=== PATIENT | female | born 1945 | race Caucasian/White ===

== ENCOUNTER → 2018-01-27 15:36 | Outpatient (CLI) | payer OTHER, SELFPAY ==
--- NOTE | 2018-01-27 | DI.RAD.S_ITS ---
PROCEDURE: XR CHEST 2V INDICATIONS: ACUTE UPPER RESPITORY INFECTION TECHNIQUE: 2 views of the chest were acquired. COMPARISON: [facility], CR, XR CHEST 2VW, 06/24/2016, 13:30. [facility], CR, CHEST 1 VIEW, 11/19/2009, 22:13. FINDINGS: Surgical changes and devices: None. Lungs and pleura: No pleural effusions or pneumothorax. Lungs are clear. Mediastinum: Mediastinal contours are normal. Heart size is normal. Bones and chest wall: No suspicious bony abnormalities. Soft tissues appear unremarkable. IMPRESSION: No acute cardiopulmonary disease. Dictated by: Zuhair CHAMORRO Interpreted: Carlos Hirsch MD on 01/27/2018 at 16:03 Approved by: Carlos Hirsch M.D. on 01/28/2018 at 10:43
== END ==
PROVIDERS: Visit Provider Physician Assistant
DX: J06.9 Acute upper respiratory infection, unspecified (principal)
CPT/HCPCS: 71046

== ENCOUNTER → 2018-04-14 13:32 | Outpatient (CLI) | payer OTHER, SELFPAY ==
--- NOTE | 2018-04-14 | DI.RAD.S_ITS ---
PROCEDURE: FL UPPER GI SERIES INDICATIONS: GERD COMPARISON: None. 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 No suspicious abdominal calcifications. Visualized solid organ contours appear normal. Bony structures appear unremarkable. Please fix exam type. Esophagus: Esophageal mucosa is normal on air-contrast views. On single-contrast views, there is normal esophageal peristalsis. No strictures, extrinsic mass effects, or diverticula. There is a small hiatal hernia seen. There is a mild amount of gastroesophageal reflux. There is normal transit of a calibrated barium tablet through the esophagus. Stomach: The stomach is normally distensible, with normal rugal fold thickness. No mucosal masses or ulcers. Pylorus and duodenal bulb appear normal in morphology. Duodenal folds are normal in thickness as well. IMPRESSION: Small hiatal hernia, with a mild amount of associated gastroesophageal reflux. Dictated by: Rio Mckay M.D. on 04/14/2018 at 14:33 Approved by: Rio Mckay M.D. on 04/14/2018 at 14:34
== END ==
PROVIDERS: PCP Physician Assistant; Visit Provider Physician Assistant
DX: K21.9 Gastro-esophageal reflux disease without esophagitis (principal); K44.9 Diaphragmatic hernia without obstruction or gangrene
CPT/HCPCS: 74240

== ENCOUNTER 2018-04-21 08:28 | Day surgery (SDC) | payer OTHER, SELFPAY ==
[2018-04-21] VITALS (7 sets, daily range): BP systolic 100–119; BP diastolic 56–70; PULSE 63–74; RESP 8–20; TEMP 36.4–36.6; O2SAT 92–96; BMI 27.4
--- NOTE | 2018-04-21 10:23 | PM.HP.1 ---
History of Present Illness Date Patient Seen: 04/21/18 Time Patient Seen: 10:23 Chief complaint: [id number] Narrative: Very pleasant and generally very healthy 73-year-old lady here for screening colonoscopy. She denies any problems or symptoms related to the function of her GI tract. She reports her last colonoscopy was approximately 14 years ago and was normal. Patient History Medical History Appendicitis with perforation (Acute) Family & Social History Family History: Reviewed 04/21/18 by Ambar Lopez MD Social History: household members spouse Tobacco & Substance use: Smoking Status Never smoker alcohol intake never Meds Home Medications Medication Instructions Recorded Confirmed Type fluoxetine 20 mg capsule 20 mg PO DAILY 01/12/18 04/21/18 History pantoprazole 40 mg tablet,delayed 40 mg PO .COMPLEX 01/12/18 04/21/18 History release Allergies Allergy/AdvReac Type Severity Reaction Status Date / Time latex Allergy Severe swelling Verified 04/21/18 08:47 at site erythromycin base Allergy Mild Nausea Verified 04/21/18 08:47 Sulfa (Sulfonamide Allergy Mild Nausea Verified 04/21/18 08:58 Antibiotics) Review of Systems Review of Systems All systems reviewed & are unremarkable except as noted in HPI and below Exam Vital Signs (past 8 hours): - 04/21/18 08:48 Temperature 97.6 F Pulse Rate 69 Respiratory Rate 15 Blood Pressure 119/70 Pulse Oximetry 96 Oxygen Delivery Method Room Air Narrative Exam Narrative: Pleasant well-nourished well-developed lady in no distress HEENT: Normocephalic and atraumatic, pupils equal round reactive to light accommodation with anicteric sclera Lungs: Clear to auscultation bilaterally Heart: Regular rate rhythm Abdomen: Soft, nontender, active bowel sounds Extremities: Warm well perfused Assessment & Plan Plan: Assessment/Plan Narrative: Pleasant a remarkably healthy 73-year-old lady here for screening colonoscopy. We discussed the risks and benefits of procedure and she expressed a desire to complete it today
[2018-04-21] MEDS: SODIUM CHLORIDE 0.9% 1,000 ML 200 ML IV (10:43)
[2018-04-21] MEDS: fentaNYL 250 MCG/5 ML INJ IV (10:44)
[2018-04-21] MEDS: MIDAZOLAM 5 MG/5 ML VIAL 6 MG IV (10:45)
--- NOTE | 2018-04-21 10:50 | PM.OP.1 ---
Operative Date/Time/Diagnoses Date of procedure: 04/21/18 Time of procedure: 10:50 Pre-op diagnosis: Screening Post-op diagnosis: same Procedure & Clinicians Procedure: Colonoscopy to the cecum Same procedure as scheduled: Yes Indications: Last colonoscopy 14 years ago Surgeon: Ambar Lopez Anesthesia Type: Sedation (Versed 6 mg; fentanyl 200 mcg) Operative Notes Findings: 1. Excellent prep 2. No polyps or mass lesions 3. No AV malformations 4. Mild diverticulosis limited to the sigmoid region 5. Grade 1 internal hemorrhoids 6. Essentially normal colonoscopy for age Procedure in detail: After obtaining informed consent, the patient was brought to the GI suite and placed in the left lateral decubitus position on the examination table. After placement of appropriate monitors, the patient was given incremental doses of Versed and Fentanyl until an appropriate level of sedation was achieved. A time out was held per SCOAP protocol. A digital rectal examination was performed and did not reveal any masses or obstructing lesions. The colonoscope was gently passed into the patient's anus and the entire colon navigated to the level of the cecum with minimal difficulty. Once in the cecum, the scope was withdrawn being sure to go before and beyond all mucosal folds and prominences and get an excellent examination. The findings are noted above. At the level of the rectal vault, the scope was retroflexed and the internal anal canal was examined. The scope was straightened and air aspirated from the colon. The instrument was removed from the patient's body and the procedure was concluded. The patient was allowed to awaken from sedation without difficulty and taken to the post-anesthesia care unit in good condition. Total sedation time 22 min Total withdrawal time 9 min Complications: none Condition: stable Disposition: PACU Plan for aftercare: 1. Discharge to home 2. I do not recommend additional screening colonoscopies
== END 2018-04-21 11:46 | disposition home or self-care (01) ==
PROVIDERS: PCP Physician Assistant; Visit Provider Surgery
PROC: 0DJD8ZZ Inspection of Lower Intestinal Tract, Via Natural or Artificial Opening Endoscopic (ICD-10-PCS; CPT 45378; principal; 2018-04-21 09:45)
DX: Z12.11 Encounter for screening for malignant neoplasm of colon (principal); K57.30 Diverticulosis of large intestine without perforation or abscess without bleeding; K64.0 First degree hemorrhoids
CPT/HCPCS: G0121; 99152; J2250; J3010

== ENCOUNTER → 2019-09-06 15:57 | Outpatient (CLI) | payer MEDICARE, SELFPAY ==
--- NOTE | 2019-09-06 | DI.MG.S_ITS ---
BILATERAL DIGITAL SCREENING MAMMOGRAM 3D/2D WITH CAD: 09/06/2019 CLINICAL: Routine screening. Family history of breast cancer. Comparison is made to exams dated: 08/23/2017 mammogram, 08/20/2015 mammogram, and 02/15/2013 mammogram - [facility]. The tissue of both breasts is heterogeneously dense. This may lower the sensitivity of mammography. Current study was also evaluated with a Computer Aided Detection (CAD) system. No significant masses, calcifications, or other findings are seen in either breast. There has been no significant interval change. IMPRESSION: NEGATIVE There is no mammographic evidence of malignancy. A 1 year screening mammogram is recommended. This exam was interpreted at Station ID: [id number]. NOTE: For mammograms, a report in lay terms will be sent to the patient. Approximately 15% of breast malignancies will not be visualized mammographically. In the management of a palpable breast mass, a negative mammogram must not discourage biopsy of a clinically suspicious lesion. Electronically Signed By: Jessenia vazquez/aarti:09/06/2019 16:57:28 letter sent: Normal Exam ACR BI-RADS Category 1: Negative 3341F
== END ==
PROVIDERS: PCP Physician Assistant; Referring Provider Internal Medicine; Visit Provider Internal Medicine
DX: Z12.31 Encounter for screening mammogram for malignant neoplasm of breast (principal); Z80.3 Family history of malignant neoplasm of breast
CPT/HCPCS: 77063; 77067

== ENCOUNTER → 2020-11-13 13:59 | Outpatient (CLI) | payer MEDICARE, SELFPAY ==
--- NOTE | 2020-11-13 14:04 | DI.RAD.S_ITS ---
PROCEDURE: XR CERVICAL SPINE 2V OR 3V INDICATIONS: NECK PAIN TECHNIQUE: 3 view(s) of the cervical spine were acquired. COMPARISON: None. FINDINGS: Bones: Vertebral body height, bone mineralization and craniovertebral relationships are normal. There is 3 mm anterior subluxation of C4 over C5. Degenerative disc space narrowing and anterior osteophytes noted at C5-6 and C6-7 with hypertrophic facet joints present throughout the exam. Soft tissues: No prevertebral soft tissue swelling. IMPRESSION: Multilevel degenerative disc disease and arthropathy Degenerative grade 1 anterior spondylolisthesis at C4-5 Dictated by: Jett Van M.D. on 11/13/2020 at 15:15 Approved by: Jett Van M.D. on 11/13/2020 at 15:18
--- NOTE | 2020-11-13 14:04 | DI.RAD.S_ITS ---
PROCEDURE: XR LUMBAR SPINE 2-3V INDICATIONS: BACK PAIN TECHNIQUE: 3 views of the lumbar spine were acquired. COMPARISON: [facility], , L-SPINE 2-3 VIEWS, 03/07/2009, 15:34. FINDINGS: Bones: Or vertebral body height and bone mineralization is maintained. There is severe disc space narrowing and 3 mm retrolisthesis noted at L2-3, new from the prior exam. Mild convex left thoracolumbar scoliosis. Stable distaste narrowing and degenerative facet joints noted L5-S1 Soft tissues: Overlying bowel gas pattern is normal. No suspicious soft tissue calcifications. IMPRESSION: 1. Degenerative disc disease and facet arthropathy resulting in retrolisthesis at L2-3, new from the prior exam 03/07/2009 Dictated by: Jett Van M.D. on 11/13/2020 at 15:18 Approved by: Jett Van M.D. on 11/13/2020 at 16:05
--- NOTE | 2020-11-13 14:04 | DI.RAD.S_ITS ---
PROCEDURE: XR THORACIC SPINE 3V INDICATIONS: BACK PAIN TECHNIQUE: With 2 views of the thoracic spine were acquired. COMPARISON: [facility], , XR CHEST 2V, 01/27/2018, 15:42. FINDINGS: Bones: No fractures or dislocations. No suspicious bony lesions. 12 pairs of ribs are noted, and appear intact where visualized. Convex right thoracic scoliosis noted. Minimal disc space narrowing and anterior osteophytes noted in the mid thoracic spine. Soft tissues: Surgical clips noted in the right upper quadrant. IMPRESSION: Mild multilevel degenerative disc disease in the midthoracic spine without fracture or malalignment. Dictated by: Jett Van M.D. on 11/13/2020 at 16:05 Approved by: Jett Van M.D. on 11/13/2020 at 16:07
== END ==
PROVIDERS: PCP Student in an Organized Health Care Education/Training Program; Referring Provider Student in an Organized Health Care Education/Training Program; Visit Provider Student in an Organized Health Care Education/Training Program
DX: M54.9 Dorsalgia, unspecified (principal); M47.812 Spondylosis without myelopathy or radiculopathy, cervical region; M50.321 Other cervical disc degeneration at C4-C5 level; M43.12 Spondylolisthesis, cervical region; M51.36 Other intervertebral disc degeneration, lumbar region; M43.16 Spondylolisthesis, lumbar region; M47.816 Spondylosis without myelopathy or radiculopathy, lumbar region; M51.34 Other intervertebral disc degeneration, thoracic region; N18.30 Chronic kidney disease, stage 3 unspecified; Z78.0 Asymptomatic menopausal state; Z82.62 Family history of osteoporosis
CPT/HCPCS: 72040; 72072; 72100; 77080

== ENCOUNTER → 2021-09-10 14:59 | Outpatient (CLI) | payer OTHER, SELFPAY ==
--- NOTE | 2021-09-10 | DI.MG.S_ITS ---
BILATERAL DIGITAL SCREENING MAMMOGRAM 3D/2D WITH CAD: 09/10/2021 CLINICAL: Routine screening. Family history of breast cancer. Comparison is made to exams dated: 09/06/2019 mammogram, 08/23/2017 mammogram, and 08/20/2015 mammogram - [facility]. The tissue of both breasts is heterogeneously dense. This may lower the sensitivity of mammography. Current study was also evaluated with a Computer Aided Detection (CAD) system. No significant masses, calcifications, or other findings are seen in either breast. There has been no significant interval change. IMPRESSION: NEGATIVE There is no mammographic evidence of malignancy. A 1 year screening mammogram is recommended. This exam was interpreted at Station ID: [id number]. NOTE: For mammograms, a report in lay terms will be sent to the patient. Approximately 15% of breast malignancies will not be visualized mammographically. In the management of a palpable breast mass, a negative mammogram must not discourage biopsy of a clinically suspicious lesion. Electronically Signed By: Juan Garrido M.D., jr/aarti:09/11/2021 09:18:27 letter sent: Normal Exam ACR BI-RADS Category 1: Negative 3341F
== END ==
PROVIDERS: PCP Internal Medicine; Referring Provider Internal Medicine; Visit Provider Internal Medicine
DX: Z12.31 Encounter for screening mammogram for malignant neoplasm of breast (principal); Z80.3 Family history of malignant neoplasm of breast
CPT/HCPCS: 77063; 77067

== ENCOUNTER → 2023-01-21 15:23 | Outpatient (CLI) | payer OTHER, SELFPAY ==
--- NOTE | 2023-01-21 15:25 | DI.US.S_ITS ---
PROCEDURE: US ABDOMEN LIMITED INDICATIONS: LUMP RIGHT POSTERIOR THORAX TECHNIQUE: Real-time focused scanning was performed of the abdomen, with image documentation. COMPARISON: None. FINDINGS: Palpable lump, right posterior thorax, was interrogated with a high megahertz linear transducer. This corresponded to a homogeneous hyperechoic well-defined lesion measuring 3.4 x 2.0 x 0.9 cm, without vascularity. It may potentially represent lipoma. 2 other incidental similar lesions were identified, including a lesion lateral to the palpable nodule, measuring 2.4 x 1.2 x 0.6 cm, and a more medial inferior lesion measuring 1.9 x 0.9 x 0.7 cm. These all may potentially represent lipomata. IMPRESSION: Palpable lump may potentially represent a lipoma. 2 other potential lipomas are identified in relative close proximity. Dictated by: Vikas Carter M.D. on 01/21/2023 at 17:22 Approved by: Vikas Carter M.D. on 01/21/2023 at 17:24
== END ==
PROVIDERS: PCP Registered Nurse; Referring Provider Registered Nurse; Visit Provider Registered Nurse
DX: D49.2 Neoplasm of unspecified behavior of bone, soft tissue, and skin (principal)
CPT/HCPCS: 76705

== ENCOUNTER 2023-03-23 06:37 | Day surgery (SDC) | payer OTHER, SELFPAY ==
[2023-03-09 08:02] VITALS: BMI 30.2
--- NOTE | 2023-03-23 | PATH_ITS ---
[facility] Accession Number: [id number] No. of containers..01 Tissue . 01 Material submitted: . back - RIGHT LOWER BACK . 01 Diagnosis: Right Lower Back, Excision: Mature fibroadipose tissue, consistent with lipoma. MRV 03/31/2023 1225 Local . 01 Electronically signed: . Michael Hair MD, Dermatopathologist NPI- [id number] . 01 Gross description: . RIGHT LOWER BACK: Received in formalin is 1 fragment of lazo soft tissue measuring 5.5 x 3.0 x 1.7 cm. Tissue is inked. Specimen is sectioned and submitted in data entry representative sections in 2 cassettes. /LÁZARO 03/25/2023 0052 Local . 01 Pathologist provided ICD-10: D17.9 . 01 CPT . 821341 Specimen Comment: A courtesy copy of this report has been sent to [phone] Performed at: 01 [facility] [address] [place] [address], [place], [place] [id number] MD Alejandro Kothari MD Phone: [phone]
[2023-03-23] MEDS: LACTATED RINGERS 1,000 ML 100 ML IV (07:22)
[2023-03-23 07:31] VITALS: BP 134/69; PULSE 63; RESP 16; TEMP 36.2; O2SAT 97
[2023-03-23 07:45] VITALS: BMI 30.2
--- NOTE | 2023-03-23 07:51 | PM.PREOP ---
Pre-operative Note COVID-19 COVID-19 status: Not tested Interval Note History & Physical reviewed/Exam performed by Physician: Yes Changes to H&P: No ASA Class (for procedural sedation): II
--- NOTE | 2023-03-23 08:09 | SUR.OPER ---
Lateral OR TABLE, head on pillow, gel axillary roll in place, bottom leg bent with gel pad under knee to foot, upper leg straight and supported with pillows. CLOTH TAPE USED TO SECURE BODY AND LEGS TO TABLE. TOWELS USED BETWEEN TAPE AND SKIN. Upper arm supported by pillows and secured over bottom arm to padded arm board WITH CLOTH TAPE. Safety belt at hip, tape over blanket lower legs.
[2023-03-23] MEDS: BUPIVACAINE 0.5% (PF) 30 ML, EPINEPHrine 0.15 MG INJ (08:12)
--- NOTE | 2023-03-23 08:35 | P.OP_ITS ---
Operative Date/Time/Diagnoses Date of procedure: 03/23/23 Time of procedure: 08:36 Pre-op diagnosis: Right lumbar tissue mass Post-op diagnosis: same Procedure & Clinicians Procedure: Excisional biopsy of right lumbar soft tissue mass Same procedure as scheduled: Yes Surgeon: Ha Phelan Traffic Agent: Rafy Johnson Anesthesia Type: General Operative Notes Procedure in detail: The patient was brought to the operating room and monitored anesthesia was induced. Patient was then positioned in the left lateral decubitus position with right side up. She was secured and pressure points were padded. The right lumbar area was prepped and draped in the usual fashion and a time-out was performed. A 7 cm incision was created over the palpable mass right lumbar area and dissection was carried down to the mass which appeared to be a ill-defined lipoma measuring roughly 4 cm x 3 cm x 3 cm. The mass extended to the muscle fascia. Some additional local was injected into the muscle fascia. A small defect was created in the muscle fascia which was repaired with 3 interrupted 3- 0 Vicryl sutures. We then irrigated the wound with saline. We then closed the wound in layers using multiple interrupted 3-0 Vicryl dermal sutures followed by a running 4-0 Monocryl subcuticular stitch. Steri-Strips and gauze were applied over the incision. EBL: 10 mL Specimen: Right lumbar lipoma Post-operative Condition: stable Disposition: PACU
[2023-03-23 08:37] VITALS: BP 117/42; PULSE 80; RESP 14; TEMP 36.2; O2SAT 96
[2023-03-23 08:41] VITALS: BP 111/42; PULSE 69; RESP 12; O2SAT 96
[2023-03-23 08:47] VITALS: BP 116/59; PULSE 69; RESP 14; TEMP 36.2; O2SAT 96
[2023-03-23 08:51] VITALS: BP 115/51; PULSE 65; RESP 14; O2SAT 98
[2023-03-23 09:03] VITALS: BP 119/53; PULSE 58; RESP 16; TEMP 36.2; O2SAT 98
== END 2023-03-23 09:21 | disposition home or self-care (01) ==
PROVIDERS: PCP Registered Nurse; Referring Provider Surgery; Visit Provider Surgery
PROC: (CPT 21933; principal; 2023-03-23 07:45)
DX: R22.2 Localized swelling, mass and lump, trunk (principal); D17.1 Benign lipomatous neoplasm of skin and subcutaneous tissue of trunk
CPT/HCPCS: 21933; J0171; J2405; J2704; J3010

== ENCOUNTER → 2023-05-19 12:55 | Outpatient (CLI) | payer OTHER, SELFPAY ==
--- NOTE | 2023-05-19 | DI.RAD.S_ITS ---
PROCEDURE: XR JOINT SURVEY INDICATIONS: ARTHRITIS SCREENING TECHNIQUE: 1 view(s) of the bilateral hands acquired. COMPARISON: None. FINDINGS: Bones: No fractures or dislocations. Mild osteoarthritic changes are noted throughout bilateral hand and wrist joints more notably involving 1st CMC joints, and interphalangeal joints. There is mild bilateral juxta-articular osteopenia. Radiolucency involving radial aspect of left 3rd proximal and middle phalangeal heads are seen. Similar radiolucency is also noted in radial aspect of right 3rd proximal phalangeal head. No suspicious bony lesions. Soft tissues: No suspicious soft tissue calcifications. 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 Subtle radiolucencies involving bilateral 3rd proximal phalangeal heads and left 3rd middle phalangeal head concerning for subtle erosion secondary to inflammatory arthropathy suggest clinical correlation. Dictated by: Jono Mclain M.D. on 05/20/2023 at 11:48 Approved by: Jono Mclain M.D. on 05/20/2023 at 11:50
== END ==
PROVIDERS: PCP Registered Nurse; Referring Provider Registered Nurse; Visit Provider Registered Nurse
DX: M25.531 Pain in right wrist (principal); R20.2 Paresthesia of skin
CPT/HCPCS: 77077

== ENCOUNTER → 2023-12-31 12:41 | Outpatient (CLI) | payer OTHER, SELFPAY ==
--- NOTE | 2023-12-31 12:42 | DI.MG.S_ITS ---
BILATERAL DIGITAL SCREENING MAMMOGRAM 3D/2D WITH CAD: 12/31/2023 CLINICAL: Routine screening. Family history of breast cancer. Comparison is made to exams dated: 09/10/2021 mammogram, 09/06/2019 mammogram, and 08/23/2017 mammogram - [facility]. Both breasts are heterogeneously dense, which may obscure small masses (category c / 51-75% glandular tissue). Current study was also evaluated with a Computer Aided Detection (CAD) system. There is a focal asymmetry in the left breast at lower outer quadrant at middle depth. No other significant masses, calcifications, or other findings are seen in either breast. IMPRESSION: INCOMPLETE: NEEDS ADDITIONAL IMAGING EVALUATION The focal asymmetry in the left breast is indeterminate. A diagnostic mammogram and ultrasound is recommended. Based on the Tyrer Cuzick model (a risk assessment model) the patient's lifetime risk is 3.4% and her 10 year risk is 0.0%. According to the ACR, ACS, and NCCN guidelines, an annual breast MRI exam along with mammogram is recommended if the patient's lifetime risk is 20% or greater. This exam was interpreted at Station ID: [id number]. NOTE: For mammograms, a report in lay terms will be sent to the patient. Approximately 15% of breast malignancies will not be visualized mammographically. In the management of a palpable breast mass, a negative mammogram must not discourage biopsy of a clinically suspicious lesion. Electronically Signed By: Lizzy Ngo M.D., Ph.D. eb/:12/31/2023 14:07:16 letter sent: Additional Imaging Needed ACR BI-RADS Category 0: Incomplete 3340F
== END ==
LOC: MAMMO 12:42
PROVIDERS: PCP Registered Nurse; Referring Provider Registered Nurse; Visit Provider Registered Nurse
DX: Z12.31 Encounter for screening mammogram for malignant neoplasm of breast (principal); Z80.3 Family history of malignant neoplasm of breast; R92.333 Mammographic heterogeneous density, bilateral breasts
CPT/HCPCS: 77063; 77067

== ENCOUNTER → 2024-03-08 11:43 | Outpatient (CLI) | payer OTHER, SELFPAY ==
--- NOTE | 2024-03-08 11:44 | DI.MG.S_ITS ---
UNILATERAL LEFT DIGITAL DIAGNOSTIC MAMMOGRAM 3D/2D WITH ADDITIONAL VIEWS: 03/08/2024 CLINICAL: Additional evaluation requested from prior study. Comparison is made to exams dated: 12/31/2023 mammogram, 09/10/2021 mammogram, and 09/06/2019 mammogram - [facility]. The left breast is heterogeneously dense, which may obscure small masses (category c / 51-75% glandular tissue). The 6 mm oval, bilobed, low density asymmetry with a circumscribed margin in the left breast central to the nipple posterior depth is seen in additional views. No other significant masses or calcifications are seen in the breast. IMPRESSION: INCOMPLETE: NEEDS ADDITIONAL IMAGING EVALUATION The 6 mm asymmetry in the left breast most likely is a cyst, clustered cysts, or a lymph node but remains indeterminate. Ultrasound is recommended for full evaluation of this area. This was performed immediately following this exam. Based on the Tyrer Cuzick model (a risk assessment model) the patient's lifetime risk is 3.4% and her 10 year risk is 0.0%. According to the ACR, ACS, and NCCN guidelines, an annual breast MRI exam along with mammogram is recommended if the patient's lifetime risk is 20% or greater. This exam was interpreted at Station ID: [id number]. NOTE: For mammograms, a report in lay terms will be sent to the patient. Approximately 15% of breast malignancies will not be visualized mammographically. In the management of a palpable breast mass, a negative mammogram must not discourage biopsy of a clinically suspicious lesion. Electronically Signed By: Morelia underwood/:03/08/2024 14:48:21 ACR BI-RADS Category 0: Incomplete 3340F
--- NOTE | 2024-03-08 11:45 | DI.US.S_ITS ---
LIMITED ULTRASOUND OF LEFT BREAST: 03/08/2024 CLINICAL: Follow up from addtional views. Comparison is made to exams dated: 03/08/2024 mammogram, 12/31/2023 mammogram, 09/10/2021 mammogram, 09/06/2019 mammogram, and 08/23/2017 mammogram - [facility]. Color flow and real-time ultrasound of the left breast 6 o'clock region were performed. There is a 0.4 cm x 0.8 cm x 0.3 cm bilobed, oval cyst in the left breast at 6 o'clock middle depth 3 cm from the nipple. This oval cyst is hypoechoic with posterior acoustic enhancement. There are related echgenic foci, possibly microcalcifications. This correlates with mammography findings. Color flow imaging demonstrates that there is no vascularity present. IMPRESSION: PROBABLY BENIGN The 0.8 cm cyst in the left breast probably corresponds to the mammogram finding, most likely is a complicated cyst and is probably benign. A follow-up left mammogram and an ultrasound in 6 months is recommended to demonstrate stability. Findings and recommendations were conveyed to the patient at time of exam. This exam was interpreted at Station ID: [id number]. Electronically Signed By: Morelia underwood/:03/08/2024 14:55:00 letter sent: Followup Recommended Ultrasound BI-RADS: 3 Probably benign
== END ==
LOC: MAMMO 11:44
PROVIDERS: PCP Registered Nurse; Referring Provider Registered Nurse; Visit Provider Registered Nurse
DX: R92.8 Other abnormal and inconclusive findings on diagnostic imaging of breast (principal); N60.02 Solitary cyst of left breast; N64.89 Other specified disorders of breast; R92.332 Mammographic heterogeneous density, left breast
CPT/HCPCS: 76642; 77065; G0279

== ENCOUNTER → 2024-08-01 12:27 | Outpatient (ROUT) | payer OTHER, SELFPAY ==
[2024-08-01 12:49] LABS: Alanine Aminotransferase 23 IU/L (<35); Albumin Globulin Ratio 1.5 (1.0-2.8); Alkaline Phosphatase 75 U/L (38-126); BUN Creatinine Ratio 22.9 (6-22); Bilirubin Total 1.8 mg/dL (0.2-1.3); Blood Urea Nitrogen 24 mg/dL (7-17); Calcium 9.5 mg/dL (8.4-10.2); Carbon Dioxide 25 mmol/L (22-32); Chloride 104 mmol/L (98-107); Estimated Glomerular Filt Rate 54 mL/min (>60); Globulin 2.7 g/dL (1.7-4.1); Glucose 91 mg/dL (80-110); Sodium 137 mmol/L (137-145); Total Protein 6.7 g/dL (6.3-8.2)
[2024-08-01 12:52] LABS: HEMOLYSIS 56 (0-50); Potassium 3.9 mmol/L (3.4-5.1)
[2024-08-01 12:54] LABS: Aspartate Aminotransferase 39 IU/L (14-36)
== END ==
PROVIDERS: PCP Registered Nurse; Visit Provider Registered Nurse
DX: R10.32 Left lower quadrant pain (principal)
CPT/HCPCS: 80053

== ENCOUNTER → 2024-08-02 11:48 | Outpatient (CLI) | payer OTHER, SELFPAY ==
--- NOTE | 2024-08-02 11:50 | DI.CT.S_ITS ---
PROCEDURE: CT ABDOMEN PELVIS W CON INDICATIONS: LLQ ABD PAIN TECHNIQUE: After the administration of intravenous contrast, axial sections acquired from the lung bases to the pubic symphysis. Coronal and sagittal reformats were performed. For radiation dose reduction, the following was used: automated exposure control, adjustment of mA and/or kV according to patient size. COMPARISON: None. FINDINGS: Image quality: Diagnostic. Lower Chest: No significant findings. ABDOMEN: Liver: No solid mass. Several small cysts. Gallbladder: Absent. Biliary ducts: No biliary dilation. Pancreas: No ductal dilation. Spleen: Size is within normal limits. Benign cysts. Adrenal Glands: No adrenal nodules. Kidneys and Ureters: No hydronephrosis. No solid mass. No complex renal cystic lesion which requires follow up. Stomach and Bowel: Mild diverticulitis at the splenic flexure, (3/51). No free air seen. No abscess. The appendix is absent. No small bowel obstruction. Stomach is within normal limits. Peritoneum: No abnormal intraperitoneal fluid. No free air. Ventral Wall: No significant ventral hernia. Abdominal Nodes: No retroperitoneal or mesenteric adenopathy by size criteria. Vessels: Aorta and inferior vena cava are normal in size. PELVIS: Pelvic Organs: Uterus is absent. No free fluid. Bladder: No bladder wall thickening, accounting for underdistention. Pelvic Nodes: No enlarged lymph nodes. Miscellaneous: No inguinal hernias are seen. Bones: No aggressive osseous abnormality. Sacral Tarlov cysts. IMPRESSION: Mild splenic flexure diverticulitis. No abscess or free air. Dictated by: Esau Benedict M.D. on 08/02/2024 at 17:21 Approved by: Esau Benedict M.D. on 08/02/2024 at 17:29
== END ==
PROVIDERS: PCP Registered Nurse; Referring Provider Registered Nurse; Visit Provider Registered Nurse
DX: K76.89 Other specified diseases of liver (principal); R10.32 Left lower quadrant pain; D73.4 Cyst of spleen; K57.32 Diverticulitis of large intestine without perforation or abscess without bleeding; G96.191 Perineural cyst; Z90.49 Acquired absence of other specified parts of digestive tract
CPT/HCPCS: 74177; Q9967

== ENCOUNTER → 2024-09-29 13:26 | Outpatient (CLI) | payer OTHER, SELFPAY ==
--- NOTE | 2024-09-29 13:28 | DI.MG.S_ITS ---
MM diagnostic mammo unilat LT, US breast LT limited: 09/29/2024 BI-RADS: 4 CLINICAL: 79-year old female for left diagnostic breast [facility] lifetime risk of 2.1%. Current reported family history of breast cancer: mother. PRIOR EXAMS 03/08/2024, 12/31/2023, 09/10/2021, 09/06/2019, 08/23/2017, 08/20/2015. MAMMOGRAPHY TECHNIQUE: 2D and 3D (tomosynthesis) digital mammographic views obtained, with additional images as needed for full coverage. Current study was also evaluated with a Computer Aided Detection (CAD) system. ULTRASOUND TECHNIQUE Real-time manjarrez scale and color doppler imaging of the area of clinical interest was performed with image documentation. TARGETED Right Breast Ultrasound: Real-time ultrasound exam was performed focused to area of clinical and/or imaging concern. Left Axilla scanned. DENSITY Left: C. The breasts are heterogeneously dense, which may obscure small masses. MAMMOGRAPHY FINDINGS Left: Lower at 6:00, Anterior depth: There is a focal asymmetry present that is unchanged in size and appearance. ULTRASOUND FINDINGS Left: Lower at 6:00, 3 cm from nipple, measuring 0.8 x 0.5 x 0.3 cm: Contains micro calcifications. There is a mass with complex echo pattern present. Doppler shows single vessel vascularity. Left: Axilla, measuring 2 x 1.6 x 1 cm: Cortex = 1 mm. No suspicious sonographic finding with typically benign findings noted. IMPRESSION: Left (Mass): Lower at 6:00, 3 cm from nipple, measuring 0.8 x 0.5 x 0.3 cm * Suspicious findings with likelihood of malignancy. RECOMMENDATIONS Left: Lower at 6:00, 3 cm from nipple * Ultrasound-guided core biopsy for further evaluation. OVERALL ASSESSMENT CATEGORY BI-RADS-4: Suspicious. ELECTRONICALLY SIGNED: Nirav Davidson M.D. on 09/29/2024 at 03:23:54 PM PT Interpreting Station ID: [id number]
== END ==
LOC: MAMMO 13:27
PROVIDERS: PCP Registered Nurse; Referring Provider Registered Nurse; Visit Provider Registered Nurse
DX: R92.8 Other abnormal and inconclusive findings on diagnostic imaging of breast (principal); N63.23 Unspecified lump in the left breast, lower outer quadrant; R92.332 Mammographic heterogeneous density, left breast; N64.4 Mastodynia; Z80.3 Family history of malignant neoplasm of breast
CPT/HCPCS: 76642; 77065; G0279

== ENCOUNTER → 2024-10-20 13:34 | Outpatient (CLI) | payer OTHER, SELFPAY ==
--- NOTE | 2024-10-20 | PATH_ITS ---
[facility] Accession Number: [id number] No. of containers..01 Tissue . 01 Material submitted: . breast - LEFT BREAST 6:00 3CMFN MASS . 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 Negative for malignancy. MRV 10/24/2024 1745 Local . 01 Comment: As part of routine quality compliance consultant, Dr. Segundo has reviewed this case and agrees with the diagnosis above. . . 01 Electronically signed: . Ignacio Hall MD, PhD, Pathologist NPI- [id number] . 01 Gross description: . Received in formalin with two identifiers and left breast 6 o'clock 3 cm FN, are multiple yellow-lazo soft tissue fragments aggregating to 1.3 x 1.2 x 0.2 cm. Inked orange, filtered and submitted entirely in cassette A1. . The specimen was removed on 10/20/2024 at 1500 hours. Time in formalin not provided. Cold ischemic time cannot be calculated. Total fixation time is approximately 47 hours. ([id number]) /ISSA 10/21/2024 2147 Local . 01 Microscopic: . P63 and myosin immunohistochemical stains highlight intact myoepithelial cells within and at the periphery of the lesion, excluding invasive carcinoma. Control stains show appropriate reactivity. . * This test was developed and the performance characteristics were validated by [employer]. It has not been cleared or approved by the [place]. Food and Drug Administration. . 01 Pathologist provided ICD-10: D24.2 . 01 CPT . 527532, E53605, V23564 Specimen Comment: A courtesy copy of this report has been sent to [facility] Performed at: [address] [facility], [place], [place] [id number] MD Alejandro Kothari MD Phone: [phone]
--- NOTE | 2024-10-20 13:35 | DI.US.S_ITS ---
Left US bx breast perc w vac device: 10/20/2024. Rad-Path Correlation: Pending CLINICAL: 79-year old female for left procedure that resulted from diagnostic mammogram on 09/29/2024. Tyrer-Cuzick lifetime risk of 2.1%. Current reported family history of breast cancer: mother. PRIOR EXAMS Mammogram(s): 09/29/2024, 03/08/2024, 12/31/2023, 09/10/2021. Breast Ultrasound(s): 09/29/2024. CONSENT Risks including but not limited to bleeding and infection, benefits and alternatives were discussed with the patient. The patient agreed to the procedure and signed informed consent. Time out procedure was used. ROUTINE Left: Patient positioned in the supine or supine-oblique position, prepped and draped in the usual manner using sterile technique. TECHNIQUE Left Breast: Lower at 6:00, 3 cm from nipple: Morphology: Oval mass measurin.8cm. Procedure: Ultrasound-guided vacuum-assisted biopsy of a mass with Mini Cork marker placement. Device: 14-gauge vacuum-assisted biopsy instrument. BD EleVation(TM) 14g. Approach: Lateral. Anesthesia: Local anesthesia obtained using 1%-lidocaine. Secondary local anesthesia obtained using 2%-lidocaine with epinephrine. Skin Entry: Incision with #11 blade. Passes: 4. Targeting Confirmation: Real-time Observation and Post-Procedure Imaging. Marker Placement: Mini cork marker placed in target location. Post-procedure imaging: Post-procedure ultrasound confirms the marker to be in target location. Rad/Path Correlation: Pending receipt of pathology report. Conclusion: Ultrasound-guided Vacuum-assisted biopsy with post-procedure ultrasound with marker placement, Left Breast: Lower at 6:00, 3 cm from nipple PROCEDURE NOTE The lesion collapses with sampling. COMPLICATIONS: No complications were encountered while the patient was in our department. DISPOSITION The patient left our department in good condition with aftercare instructions and urged to contact us should any problem arise. The breast was compressed to achieve hemostasis. SUMMARY Left Breast: Lower at 6:00, 3 cm from nipple: Ultrasound-guided vacuum-assisted biopsy of a mass with Mini Cork marker placement. PATHOLOGY Left Breast: Lower at 6:00, 3 cm from nipple: Radiologist-Pathologist Correlation: Pending receipt of pathology report. ELECTRONICALLY SIGNED: Esau Benedict M.D. on 10/20/2024 at 03:53:17 PM PT Interpreting Station ID: [id number]
--- NOTE | 2024-10-20 13:35 | DI.MG.S_ITS ---
MM diagnostic mammo [id number]: 10/20/2024. BI-RADS: None CLINICAL: 79-year old female for left diagnostic mammogram. Mammogram is performed after US guided biopsy to assess marker location. Tyrer-Cuzick lifetime risk of 2.1%. Current reported family history of breast cancer: mother. PRIOR EXAMS Mammogram(s): 09/29/2024, 03/08/2024, 12/31/2023, 09/10/2021. Breast Ultrasound(s): 09/29/2024. MAMMOGRAPHY TECHNIQUE: 2D and 3D (tomosynthesis) digital mammographic views obtained, with additional images as needed for full coverage. Current study was also evaluated with a Computer Aided Detection (CAD) system. DENSITY Left: C. The breasts are heterogeneously dense, which may obscure small masses. MAMMOGRAPHY FINDINGS Left: Lower at 6:00, Middle depth: There is a (Mini Cork) biopsy marker in targeted location. IMPRESSION: Left * Biopsy marker present. OVERALL ASSESSMENT CATEGORY BI-RADS None: This exam requires no BI-RADS. ELECTRONICALLY SIGNED: Esau Benedict M.D. on 10/20/2024 at 03:51:44 PM PT Interpreting Station ID: [id number]
== END ==
PROVIDERS: PCP Registered Nurse; Referring Provider Registered Nurse; Visit Provider Registered Nurse
DX: R92.8 Other abnormal and inconclusive findings on diagnostic imaging of breast (principal); D24.2 Benign neoplasm of left breast; R92.332 Mammographic heterogeneous density, left breast; Z80.3 Family history of malignant neoplasm of breast
CPT/HCPCS: 19083; 77065

== ENCOUNTER → 2025-07-12 12:04 | Outpatient (CLI) | payer OTHER, SELFPAY ==
--- NOTE | 2025-07-12 12:05 | DI.US.S_ITS ---
MM diagnostic mammo BI, US breast LT limited: 07/12/2025 BI-RADS: 2 CLINICAL: 80-year old female for bilateral diagnostic mammogram and left diagnostic breast ultrasound. Tyrer-Cuzick lifetime risk of 1.0%. Current reported family history of breast cancer: mother. The patient had a prior left breast biopsy. The patient presents for follow up after biopsy. PRIOR EXAMS: 10/20/2024, 09/29/2024, 03/08/2024, 12/31/2023, 09/10/2021, 09/06/2019, 08/23/2017, 08/20/2015. MAMMOGRAPHY TECHNIQUE: 2D and 3D (tomosynthesis) digital mammographic views obtained, with additional images as needed for full coverage. Current study was also evaluated with a Computer Aided Detection (CAD) system. ULTRASOUND TECHNIQUE Real-time manjarrez scale and color doppler imaging of the area of clinical interest was performed with image documentation. Left targeted breast ultrasound of the area of clinical interest and the axilla was performed with image documentation. DENSITY C. The breasts are heterogeneously dense, which may obscure small masses. MAMMOGRAPHY FINDINGS Right: No suspicious mass, asymmetry, microcalcification, or other abnormality seen. Left (finding-1): Lower at 6:00, Anterior depth: There is a (Mini Cork) biopsy marker present. No other suspicious mass, asymmetry, microcalcification, or abnormality seen. ULTRASOUND FINDINGS Left (finding-1): Lower at 6:00, 3 cm from nipple, measuring 0.8 x 0.4 x 0.7 cm - previously measuring (09/29/2024) 0.8 x 0.3 x 0.5 cm: Correlating with area of biopsy and prior imaging concern there is an oval, circumscribed, heterogeneous mass. Doppler shows no vascularity. The mass appears heterogeneous compared to the prior ultrasound likely due to post-biopsy change. Pathology revealed an intraductal papilloma without atypia. Left: Axilla: No abnormal lymph nodes are seen in the axilla. IMPRESSION: Right * No evidence of malignancy. Left * No evidence of malignancy with benign findings. * Biopsy marker present. RECOMMENDATIONS Bilateral * Annual screening mammography. COMMENTS: Findings and recommendations were conveyed to the patient during today's evaluation. [place] interval surveillance of the patient's intraductal papilloma can be considered at the direction of the patient's breast surgeon. OVERALL ASSESSMENT CATEGORY BI-RADS-2: Benign. The [employer] recommends annual screening mammography beginning at age 40 for women with average risk of breast cancer. ELECTRONICALLY SIGNED: Supriya Biggs M.D. on 07/12/2025 at 04:08:45 PM PT Interpreting Station ID: [id number]
== END ==
LOC: MAMMO 12:04
PROVIDERS: PCP Registered Nurse; Referring Provider Registered Nurse; Visit Provider Registered Nurse
DX: D24.2 Benign neoplasm of left breast (principal); R92.333 Mammographic heterogeneous density, bilateral breasts; Z80.3 Family history of malignant neoplasm of breast
CPT/HCPCS: 76642; 77066; G0279